=== PATIENT | female | born 2005 | race Caucasian/White ===

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

== ENCOUNTER 2024-10-28 15:10 | Emergency (ER) | payer OTHER ==
[~2024-10-28] VITALS: Ht 162.6 cm; Wt 65.9 kg
[~2024-10-28 15:10] MED LIST: ESCITALOPRAM OX20 MG PO; HYDROXYZINE HCL25 MG PO
[2024-10-28] MEDS ORDERED: VALACYCLOVIR500 MG PO (15:28)
[2024-10-28 16:42] VITALS: BP 103/63
== END 2024-10-28 16:44 | disposition home or self-care (01) ==
LOC: ED 15:10
DX: K64.9 Unspecified hemorrhoids (principal); Z79.899 Other long term (current) drug therapy
CPT/HCPCS: 99282

== ENCOUNTER 2024-10-28 17:33 | Emergency (ER) | payer OTHER ==
[~2024-10-28] VITALS: Ht 162.6 cm; Wt 65.9 kg
[~2024-10-28 17:33] MED LIST changes: +VALACYCLOVIR500 MG PO
--- OUTSIDE RECORDS SUMMARY | 2024-10-28 17:40 | XMS ---
PreManage Notification: KSENIA RAMIREZ Security Costume Maker Events No recent Security Events currently on file CRITERIA MET - [facility] - 2 Visits in 30 Days CARE PROVIDERS There are no care providers on record at this time. Jeannine has no Care Guidelines for this patient. [place] VISIT COUNT (12 MO.) [facility] NOTE: Visits indicate total known visits. ED/UCC VISIT TRACKING (12 MO.) [facility] COMPLAINT: - RECTAL BLEEDING 10/28/2024 15:11 [facility] [place] TYPE: Emergency COMPLAINT: - RECTAL BLEEDING INPATIENT VISIT TRACKING (12 MO.) No inpatient visits to display in this time frame [email or web address]
[2024-10-28 18:45] VITALS: BP 106/68
== END 2024-10-28 18:45 | disposition home or self-care (01) ==
LOC: ED 17:33
DX: K64.8 Other hemorrhoids (principal); Z79.899 Other long term (current) drug therapy
CPT/HCPCS: 99283

== ENCOUNTER 2024-12-06 08:15 | Day surgery (SDC) | payer OTHER ==
[~2024-12-06] VITALS: Ht 165.1 cm; Wt 66.0 kg
[~2024-12-06 08:15] MED LIST changes: +IBLOOD GLUCOSE TEST STRIP 1 EA TEST VI PRN; +LACTATED RINGER'S 1,000 ML IV SCH; +LIDOCAINE HCL 1% 5 ML SDV INJ ONE
[2024-12-06 08:26] VITALS: BP 116/69
[2024-12-06] MEDS ORDERED: NUVARING VAGIN1 EACH VAGINAL (08:26)
[2024-12-06] MEDS ORDERED: SEVOFLURANE 250 ML BTL INH ONE (08:38)
[2024-12-06] MEDS ORDERED: METOCLOPRAMIDE HCL 10 MG/2 ML SDV IV ONE (09:00)
[2024-12-06] MEDS ORDERED: SUGAMMADEX SODIUM 200 MG/2 ML ML ONE (10:07)
[2024-12-06] MEDS ORDERED: LIDOCAINE HCL 2% 5 ML SDV ONE (10:07)
[2024-12-06] MEDS ORDERED: MIDAZOLAM HCL 2 MG/2 ML VIAL ONE (10:07)
[2024-12-06] MEDS ORDERED: ROCURONIUM BROMIDE 50 MG/5 ML SYR ONE (10:07)
[2024-12-06] MEDS ORDERED: ACETAMINOPHEN 1,000 MG/100 ML VIAL ONE (10:07)
[2024-12-06] MEDS ORDERED: DEXAMETHASONE SOD PHOS 4 MG/ML VIAL ONE (10:08)
[2024-12-06] MEDS ORDERED: fentaNYL citrate 100 MCG/2 ML VIAL ONE (10:08)
[2024-12-06] MEDS ORDERED: IBLOOD GLUCOSE TEST STRIP 1 EA TEST VI PRN (10:45)
[2024-12-06] MEDS ORDERED: NALOXONE HCL 0.4 MG SYR IV PRN (10:45)
[2024-12-06] MEDS ORDERED: HYDROmorphone HCL 1 MG/ML SYR IV PRN (10:45)
[2024-12-06] MEDS ORDERED: fentaNYL citrate 50 MCG/ML SDV IV PRN (10:45)
[2024-12-06] MEDS ORDERED: PROCHLORPERAZINE EDISYLATE 10 MG/2 ML VIAL IV PRN (10:45)
--- NOTE | 2024-12-06 10:57 | NUR ---
12/06/24 1057 Ami Bledsoe 1050: PT ARRIVES TO PACU NON AROUSAL/REACTIVE. REPORT RECIEVED FROM COMMERCIAL LINES ASSISTANT AND LOCK MAINTENANCE SUPERVISOR. ORAL AIRWAY IN PLACE
[2024-12-06 11:20] VITALS: BP 98/54
--- NOTE | 2024-12-06 11:51 | OR ---
[facility] [address], [place] [address] Signed DATE OF OPERATION: 12/06/2024 SURGEON: Dillon Terrazas MD PREOPERATIVE DIAGNOSIS: Chronic tonsillitis, tonsillithiasis. POSTOPERATIVE DIAGNOSIS: Chronic tonsillitis, tonsillithiasis. PROCEDURE: Tonsillectomy. ANESTHESIA: General orotracheal; ORTHO/PROSTHETIC AIDE, Ken. PREOPERATIVE HISTORY: Nidhi is a 19-year-old young lady with chronic tonsillitis, multiple infections, tonsil stones, taken to the operating for the above-mentioned procedures. OPERATIVE PROCEDURE AND FINDINGS: After informed consent, the patient was taken to the operating room, placed in supine position where general orotracheal anesthesia was induced. The patient and procedure were verified. The patient was repositioned. McIvor mouth gag placed into suspension. Headlight exam of the pharynx showed moderately hypertrophic cryptic tonsilolithitic tonsils. Left tonsil was grasped with a tenaculum, retracted medially and removed from its fossa with mucosal sparing incisions with Coblation. The field was dry after the procedure, same procedure on the right tonsil. Tonsils were sent to Pathology. Mouth gag was released for several minutes. Reinspection showed no bleeding points. Pharynx was suctioned clear of blood secretions. Mouth gag was removed. The patient was awakened, extubated, transported to recovery room in good condition. No complications. BLOOD LOSS: Minimal. SPECIMEN: To Pathology. DRAINS: None. Electronically Signed By: DILLON TERRAZAS MD 12/06/24 1151 PATIENT NAME: NIDHI RAMIREZ OPERATIVE REPORT DATE OF : [birth year] REPORT #: [id number] PHYSICIAN: DILLON TERRAZAS MD PCP: LEE ANN TRIPLETT PAC REPORT IS CONFIDENTIAL AND NOT TO BE RELEASED WITHOUT AUTHORIZATION [address] [place], [place] [address] Signed Dillon Terrazas MD /[facility] /[id number] Copies: ~ Electronically Signed By: DILLON TERRAZAS MD 12/06/24 1151 PATIENT NAME: NIDHI RAMIREZ OPERATIVE REPORT DATE OF : 03 REPORT #: [id number] PHYSICIAN: DILLON TERRAZAS MD PCP: LEE ANN TRIPLETT PAC REPORT IS CONFIDENTIAL AND NOT TO BE RELEASED WITHOUT AUTHORIZATION
--- NOTE | 2024-12-06 12:20 | NUR ---
1120: PATIENT BACK IN DAY SURGERY ROOM FROM PACU. SLIGHTLY DROWSY. RATES PAIN 7/10 IN THROAT. VS CHECKED. IV SITE WNL. SCDs ON. TOLERATING ICE CHIPS. GIVEN ICE WATER AND APPLESAUCE. FATHER AT BEDSIDE. CALL LIGHT WITHIN REACH.
[2024-12-06] MEDS ORDERED: ACETA/HYDROCODONE 325/7.5 15 ML BTL PO PRN (12:30)
[2024-12-06 12:36] VITALS: BP 105/70
--- NOTE | 2024-12-06 14:01 | NUR ---
1207: PATIENT READY FOR PAIN MEDICATION. AWAITING PHARMACY TO PUT IN PAIN MED ORDER. 1232: PATIENT MEDICATED FOR PAIN WITH LORTAB ELIXIR. FATHER AT BEDSIDE. CALL LIGHT WITHIN REACH. 1250: PATIENT ASSISTED OOB AND TO BATHROOM. GAIT STEADY. VOID WITHOUT DIFFICULTY. GAIT STEADY BACK TO ROOM. DISCHARGE INSTRUCTIONS GIVEN TO PATIENT AND FATHER. PATIENT GETTING DRESSED. 1305: IV DC'D WNL. TIP INTACT. DRESSING APPLIED. 1308: PATIENT DISCHARGED TO HOME VIA WHEELCHAIR WITH FATHER.
== END 2024-12-06 13:08 | disposition home or self-care (01) ==
LOC: OPS 08:15 → DS 08:15 → OPS 10:30 → DS 10:30 → OPS 13:08
PROVIDERS: ATTEND Otolaryngology
PROC: 0CTPXZZ Resection of Tonsils, External Approach (ICD-10-PCS; principal; 2024-12-06 10:30)
DX: J35.01 Chronic tonsillitis (principal); Z88.1 Allergy status to other antibiotic agents
CPT/HCPCS: 00170; J0131; J1100; J2003; J2250; J2704; J2765; J3010; J3490; J7121